=== PATIENT | male | born 1970 | race Caucasian/White ===

== ENCOUNTER 2021-08-27 15:48 | Emergency (ER) | payer OTHER ==
[~2021-08-27] VITALS: Ht 165.1 cm; Wt 99.0 kg
[2021-08-27 15:50] VITALS: BP 168/92
== END 2021-08-27 20:00 | disposition left against medical advice (07) ==
LOC: ER 15:48
DX: Z53.21 Procedure and treatment not carried out due to patient leaving prior to being seen by health care provider (principal)